=== PATIENT | female | born 1940 | race Caucasian/White ===

== ENCOUNTER 2022-03-17 17:59 | Emergency (ER) | payer MEDICAID ==
[~2022-03-17] VITALS: Ht 162.6 cm; Wt 64.0 kg
[~2022-03-17 17:59] MED LIST: AMLO5TAB88 PO
[2022-03-17] MEDS ORDERED: ACETAMINOPHEN 325MG TABLET PO NR (20:30)
[2022-03-17 21:56] VITALS: BP 168/89
== END 2022-03-18 00:20 | disposition home or self-care (01) ==
LOC: AI 17:59 → ER 03-18 00:20
DX: R55 Syncope and collapse (principal); I10 Essential (primary) hypertension; F03.90 Unspecified dementia, unspecified severity, without behavioral disturbance, psychotic disturbance, mood disturbance, and anxiety; W18.2XXA Fall in (into) shower or empty bathtub, initial encounter; Y93.F1 Activity, caregiving, bathing; Y92.9 Unspecified place or not applicable; Z88.0 Allergy status to penicillin
CPT/HCPCS: 73030; 99284

== ENCOUNTER 2022-04-18 07:18 | Inpatient (IN) | payer MEDICAID ==
[~2022-04-18] VITALS: Ht 165.1 cm; Wt 49.9 kg
[2022-04-18] MEDS ORDERED: IPRATROPIUM BROMIDE (0.02%) 0.5MG/2.5ML NEB HHN STA (07:32)
[2022-04-18] MEDS ORDERED: ALBUTEROL (0.083%) 2.5MG/3ML NEB HHN STA (07:32)
[2022-04-18] MEDS ORDERED: DEXAMETHASONE 4MG/ML 1ML VIAL IV ONE (07:45)
[2022-04-18] MEDS ORDERED: SODIUM CHLORIDE 0.9% 500 ML IV ONE (08:15)
[2022-04-18 08:27] LABS: BASOPHILS % 0.2 % (0.0-2.0); HEMATOCRIT. 36.5 % (36.0-48.0); HEMOGLOBIN. 12.1 g/dL (12.0-16.0); LYMPHOCYTES % 13.6 % (20.0-50.0); MEAN CORPUSCULAR VOLUME 96.2 fL (81.0-99.0); MEAN PLATELET VOLUME 10.1 fl (7.4-10.4); MONOCYTES % 7.9 % (2.0-8.0); NEUTROPHILS % 78.3 % (40.0-76.0); PLATELET 139 x1000/uL (130-400); RED BLOOD CELL COUNT 3.79 mill/uL (4.2-5.4); RED CELL DISTRIBUTION WIDTH 14.9 % (11.6-14.6)
[2022-04-18] MEDS ORDERED: SODIUM CHLORIDE 0.9% 1,000 ML IV ONE (08:30)
[2022-04-18 08:35] LABS: CHLORIDE 108 mEq/L (98-107)
[2022-04-18 08:45] LABS: ETHANOL BLOOD < 10 mg/dL
[2022-04-18 12:13] LABS: BG CARBOXYHEMOGLOBIN 0.5 % (0.5-1.5); BG FRACTION INSPIRED OXYGEN 32; BG HCO3 ACT 21.5 mmol/L (22.0-26.0); BG METHEMOGLOBIN 0.2 % (0.0-1.5); BG OXYHEMOGLOBIN 95.3 % (94.0-97.0); BG PCO2 36.7 mmHg (35.0-45.0); BG PH 7.386 (7.350-7.450); BG PO2 85.9 mmHg (75.0-100.0); BG SAMPLE SITE RIGHT RADIAL; BG TOTAL HEMOGLOBIN 12.8 g/dL (12.0-18.0); BG VENT MODE NASAL CANNULA
[2022-04-18] MEDS ORDERED: DIPHENHYDRAMINE 50MG/ML VIAL IV PRN (15:00)
[2022-04-18] MEDS ORDERED: ACETAMINOPHEN 325MG TABLET PO PRN (15:00)
[2022-04-18] MEDS ORDERED: IPRATROPIUM/ALBUTEROL 0.5-3(2.5)MG/3ML NEB HHN PRN (15:00)
[2022-04-18] MEDS ORDERED: ONDANSETRON HCL 4MG/2ML INJ IV PRN (15:00)
[2022-04-18] MEDS ORDERED: AZITHROMYCIN 500 MG in DEXT 5% WATER 250 ML IV SCH (15:00)
[2022-04-18 16:33] VITALS: BP 129/73
[2022-04-18 17:55] VITALS: BP_SYST 129; BP_SYST 166; BP_DIAS 73; BP_DIAS 78
[2022-04-18] MEDS: SODIUM CHLORIDE 0.9% 1,000 ML IV SCH (18:15)
[2022-04-18] MEDS: AZITHROMYCIN 500 MG in DEXT 5% WATER 250 ML IV SCH (19:36)
[2022-04-18 20:52] VITALS: BP 107/67
[2022-04-18] MEDS ORDERED: IPRATROPIUM BROMIDE (0.02%) 0.5MG/2.5ML NEB HHN PRN (22:00)
[2022-04-18] MEDS ORDERED: ALBUTEROL (0.083%) 2.5MG/3ML NEB HHN PRN (22:00)
[2022-04-19] VITALS: BP 112/66
[2022-04-19 04:00] VITALS: BP 110/77
[2022-04-19 07:00] LABS: BASOPHILS % 0.3 % (0.0-2.0); EOSINOPHILS % 0.1 % (0.0-5.0); HEMATOCRIT. 35.7 % (36.0-48.0); HEMOGLOBIN. 11.9 g/dL (12.0-16.0); LYMPHOCYTES % 13.7 % (20.0-50.0); MEAN CORPUSCULAR HEMOGLOBIN 31.9 pg (28.0-32.0); MEAN CORPUSCULAR VOLUME 95.9 fL (81.0-99.0); MONOCYTES % 5.9 % (2.0-8.0); PLATELET 114 x1000/uL (130-400); RED BLOOD CELL COUNT 3.73 mill/uL (4.2-5.4); RED CELL DISTRIBUTION WIDTH 14.4 % (11.6-14.6)
[2022-04-19 07:17] LABS: CHLORIDE 113 mEq/L (98-107)
[2022-04-19 08:00] VITALS: BP 158/80
[2022-04-19 12:00] VITALS: BP 128/74
[2022-04-19 16:00] VITALS: BP 158/98
[2022-04-19] MEDS: AZITHROMYCIN 500 MG in DEXT 5% WATER 250 ML IV SCH (16:51)
[2022-04-19] MEDS: SODIUM CHLORIDE 0.9% 1,000 ML IV SCH (16:51)
[2022-04-19 18:01] LABS: CLARITY URINE CLOUDY (CLEAR); COLOR URINE YELLOW (YELLOW); KETONES URINE NEGATIVE (NEGATIVE); LEUKOCYTE ESTERASE URINE 2+ (NEGATIVE); NITRITE URINE NEGATIVE (NEGATIVE); OCCULT BLOOD URINE 1+ (NEGATIVE); PROTEIN URINE 1+ (NEGATIVE); SPECIFIC GRAVITY URINE 1.023 (1.005-1.030)
[2022-04-19 20:00] VITALS: BP 182/106
[2022-04-19] MEDS: CLONIDINE 0.1MG TABLET PO PRN (20:52)
[2022-04-20] VITALS: BP 169/88
[2022-04-20] MEDS: ACETAMINOPHEN 650MG/20.3ML UDC PO PRN ×2 (00:26→22:55)
[2022-04-20 04:00] VITALS: BP 165/93
[2022-04-20 06:03] LABS: BASOPHILS % 0.2 % (0.0-2.0); EOSINOPHILS % 0.1 % (0.0-5.0); HEMATOCRIT. 35.1 % (36.0-48.0); HEMOGLOBIN. 11.8 g/dL (12.0-16.0); LYMPHOCYTES % 12.8 % (20.0-50.0); MEAN PLATELET VOLUME 10.2 fl (7.4-10.4); MONOCYTES % 5.7 % (2.0-8.0); NEUTROPHILS % 81.2 % (40.0-76.0); PLATELET 127 x1000/uL (130-400); RED BLOOD CELL COUNT 3.69 mill/uL (4.2-5.4); RED CELL DISTRIBUTION WIDTH 14.7 % (11.6-14.6)
[2022-04-20 08:10] LABS: CHLORIDE 109 mEq/L (98-107)
[2022-04-20] MEDS ORDERED: POTASSIUM CHLORIDE 20MEQ/PACKET PO NR (14:15)
[2022-04-20] MEDS: AZTREONAM 2 GM in DEXT 5% WATER 100 ML IV SCH (17:40)
[2022-04-20] MEDS: SODIUM CHLORIDE 0.9% 1,000 ML IV SCH (17:41)
[2022-04-20] MEDS: AZITHROMYCIN 500 MG TABLET PO SCH (17:53)
[2022-04-20] MEDS ORDERED: IPRATROPIUM/ALBUTEROL 0.5-3(2.5)MG/3ML NEB HHN SCH (18:00)
[2022-04-20] MEDS: VANCOMYCIN 1G PREMIX 200 ML IV SCH (18:27)
[2022-04-20 20:00] VITALS: BP 207/100
[2022-04-20] MEDS: ALBUTEROL (0.083%) 2.5MG/3ML NEB HHN SCH (21:06)
[2022-04-20] MEDS: BUDESONIDE 0.5MG/2ML NEB HHN SCH (21:06)
[2022-04-20] MEDS: IPRATROPIUM BROMIDE (0.02%) 0.5MG/2.5ML NEB HHN SCH (21:06)
[2022-04-20] MEDS: HYDRALAZINE 20MG/ML VIAL IV PRN (21:33)
[2022-04-20 22:44] VITALS: BP 150/86
[2022-04-21] MEDS: ALBUTEROL (0.083%) 2.5MG/3ML NEB HHN SCH ×3 (01:37→21:26)
[2022-04-21] MEDS: IPRATROPIUM BROMIDE (0.02%) 0.5MG/2.5ML NEB HHN SCH ×3 (01:37→21:26)
[2022-04-21] MEDS: AZTREONAM 2 GM in DEXT 5% WATER 100 ML IV SCH ×2 (03:54→16:50)
[2022-04-21 04:00] VITALS: BP 114/82
[2022-04-21 06:33] LABS: BASOPHILS % 0.2 % (0.0-2.0); EOSINOPHILS % 0.4 % (0.0-5.0); HEMATOCRIT. 33.7 % (36.0-48.0); HEMOGLOBIN. 11.4 g/dL (12.0-16.0); LYMPHOCYTES % 14.8 % (20.0-50.0); MEAN CORPUSCULAR HEMOGLOBIN 32.3 pg (28.0-32.0); MEAN CORPUSCULAR VOLUME 95.1 fL (81.0-99.0); MEAN PLATELET VOLUME 10.1 fl (7.4-10.4); MONOCYTES % 5.4 % (2.0-8.0); NEUTROPHILS % 79.2 % (40.0-76.0); PLATELET 133 x1000/uL (130-400); RED BLOOD CELL COUNT 3.54 mill/uL (4.2-5.4); RED CELL DISTRIBUTION WIDTH 14.5 % (11.6-14.6)
[2022-04-21 08:00] VITALS: BP 146/80
[2022-04-21 09:26] LABS: CHLORIDE 110 mEq/L (98-107)
[2022-04-21] MEDS: SODIUM CHLORIDE 0.9% 1,000 ML IV SCH (09:42)
[2022-04-21] MEDS: BUDESONIDE 0.5MG/2ML NEB HHN SCH ×2 (10:20→21:25)
[2022-04-21 12:00] VITALS: BP 101/77
[2022-04-21] MEDS: ACETAMINOPHEN 650MG/20.3ML UDC PO PRN (12:36)
[2022-04-21] MEDS: GUAIFENESIN 600MG ER TABLET PO SCH ×2 (12:58→21:36)
[2022-04-21 15:51] VITALS: BP 162/80
[2022-04-21] MEDS: CLONIDINE 0.1MG TABLET PO PRN (15:53)
[2022-04-21] MEDS: AZITHROMYCIN 500 MG TABLET PO SCH (18:21)
[2022-04-21] MEDS: VANCOMYCIN 1G PREMIX 200 ML IV SCH (18:21)
[2022-04-21 20:00] VITALS: BP 180/72
[2022-04-22] VITALS: BP 147/84
[2022-04-22] MEDS: IPRATROPIUM BROMIDE (0.02%) 0.5MG/2.5ML NEB HHN SCH ×4 (01:15→21:25)
[2022-04-22] MEDS: ALBUTEROL (0.083%) 2.5MG/3ML NEB HHN SCH ×4 (01:16→21:25)
[2022-04-22] MEDS: SODIUM CHLORIDE 0.9% 1,000 ML IV SCH ×2 (02:51→18:08)
[2022-04-22 04:00] VITALS: BP 127/72
[2022-04-22] MEDS: AZTREONAM 2 GM in DEXT 5% WATER 100 ML IV SCH ×2 (05:02→16:39)
[2022-04-22 06:18] LABS: BASOPHILS % 0.2 % (0.0-2.0); EOSINOPHILS % 0.1 % (0.0-5.0); HEMOGLOBIN. 11.3 g/dL (12.0-16.0); LYMPHOCYTES % 11.7 % (20.0-50.0); MEAN CORPUSCULAR HEMOGLOBIN 31.9 pg (28.0-32.0); MEAN CORPUSCULAR VOLUME 95.7 fL (81.0-99.0); MEAN PLATELET VOLUME 8.8 fl (7.4-10.4); MONOCYTES % 4.8 % (2.0-8.0); NEUTROPHILS % 83.2 % (40.0-76.0); PLATELET 137 x1000/uL (130-400); RED BLOOD CELL COUNT 3.55 mill/uL (4.2-5.4); RED CELL DISTRIBUTION WIDTH 14.6 % (11.6-14.6)
[2022-04-22 08:00] VITALS: BP 146/71
[2022-04-22 08:21] LABS: CHLORIDE 102 mEq/L (98-107)
[2022-04-22] MEDS: GUAIFENESIN 600MG ER TABLET PO SCH ×3 (09:03→21:02)
[2022-04-22 12:00] VITALS: BP 112/54
[2022-04-22 16:00] VITALS: BP 120/68
[2022-04-22] MEDS: VANCOMYCIN 1G PREMIX 200 ML IV SCH (16:39)
[2022-04-22] MEDS: AZITHROMYCIN 500 MG TABLET PO SCH (18:08)
[2022-04-22 20:00] VITALS: BP 166/99
[2022-04-22] MEDS: ACETAMINOPHEN 650MG/20.3ML UDC PO PRN (20:54)
[2022-04-22] MEDS: CLONIDINE 0.1MG TABLET PO PRN (20:55)
[2022-04-22] MEDS: BUDESONIDE 0.5MG/2ML NEB HHN SCH (21:25)
[2022-04-22] MEDS ORDERED: ACETYLCYSTEINE 200MG/ML 20% VIAL 10ML INH SCH (22:00)
[2022-04-23] VITALS (8 sets, daily range): BP systolic 86–154; BP diastolic 42–85
[2022-04-23] MEDS ORDERED: SODIUM CHLORIDE 0.9% 250 ML IV ONE (00:15)
[2022-04-23] MEDS: ALBUTEROL (0.083%) 2.5MG/3ML NEB HHN SCH ×4 (03:05→21:37)
[2022-04-23] MEDS: IPRATROPIUM BROMIDE (0.02%) 0.5MG/2.5ML NEB HHN SCH ×4 (03:05→21:36)
[2022-04-23] MEDS: AZTREONAM 2 GM in DEXT 5% WATER 100 ML IV SCH ×2 (05:57→17:07)
[2022-04-23] MEDS: BUDESONIDE 0.5MG/2ML NEB HHN SCH ×2 (10:15→21:41)
[2022-04-23] MEDS: SODIUM CHLORIDE 0.9% 1,000 ML IV SCH (10:54)
[2022-04-23] MEDS: VANCOMYCIN 750MG PREMIX 150 ML IV SCH (14:27)
[2022-04-23] MEDS: GUAIFENESIN 600MG ER TABLET PO SCH (20:53)
[2022-04-23] MEDS ORDERED: POTASSIUM CHLORIDE 20MEQ/PACKET PO NR (23:00)
[2022-04-24] VITALS (7 sets, daily range): BP systolic 115–173; BP diastolic 67–98
[2022-04-24] MEDS: VANCOMYCIN 750MG PREMIX 150 ML IV SCH ×2 (01:02→14:31)
[2022-04-24] MEDS: IPRATROPIUM BROMIDE (0.02%) 0.5MG/2.5ML NEB HHN SCH ×4 (01:25→21:20)
[2022-04-24] MEDS: ALBUTEROL (0.083%) 2.5MG/3ML NEB HHN SCH ×4 (01:26→21:20)
[2022-04-24] MEDS: AZTREONAM 2 GM in DEXT 5% WATER 100 ML IV SCH ×2 (05:09→17:47)
[2022-04-24] MEDS: GUAIFENESIN 600MG ER TABLET PO SCH ×2 (08:27→20:23)
[2022-04-24] MEDS: SODIUM CHLORIDE 0.9% 1,000 ML IV SCH ×2 (14:34→20:38)
[2022-04-24] MEDS: CLONIDINE 0.1MG TABLET PO PRN (20:23)
[2022-04-25] VITALS (8 sets, daily range): BP systolic 114–186; BP diastolic 54–112
[2022-04-25] MEDS: IPRATROPIUM BROMIDE (0.02%) 0.5MG/2.5ML NEB HHN SCH ×3 (01:08→15:02)
[2022-04-25] MEDS: ALBUTEROL (0.083%) 2.5MG/3ML NEB HHN SCH ×3 (01:08→15:03)
[2022-04-25] MEDS: VANCOMYCIN 750MG PREMIX 150 ML IV SCH ×2 (02:04→16:20)
[2022-04-25 05:54] LABS: BASOPHILS % 0.5 % (0.0-2.0); EOSINOPHILS % 3.5 % (0.0-5.0); HEMATOCRIT. 29.9 % (36.0-48.0); HEMOGLOBIN. 10.1 g/dL (12.0-16.0); LYMPHOCYTES % 29.7 % (20.0-50.0); MEAN CORPUSCULAR HEMOGLOBIN 32.1 pg (28.0-32.0); MEAN CORPUSCULAR VOLUME 94.7 fL (81.0-99.0); MEAN PLATELET VOLUME 8.2 fl (7.4-10.4); MONOCYTES % 7.4 % (2.0-8.0); NEUTROPHILS % 58.9 % (40.0-76.0); PLATELET 294 x1000/uL (130-400); RED BLOOD CELL COUNT 3.16 mill/uL (4.2-5.4); RED CELL DISTRIBUTION WIDTH 14.7 % (11.6-14.6)
[2022-04-25] MEDS: AZTREONAM 2 GM in DEXT 5% WATER 100 ML IV SCH ×2 (06:04→18:08)
[2022-04-25 06:23] LABS: CHLORIDE 107 mEq/L (98-107)
[2022-04-25] MEDS: GUAIFENESIN 600MG ER TABLET PO SCH (10:07)
[2022-04-25] MEDS: HYDRALAZINE 20MG/ML VIAL IV PRN (10:08)
[2022-04-25] MEDS ORDERED: HYDRALAZINE 10 MG in SODIUM CHLORIDE 0.9% 49.5 ML IV PRN (11:30)
[2022-04-25] MEDS: SODIUM CHLORIDE 0.9% 1,000 ML IV SCH (13:40)
== END 2022-04-25 19:15 | disposition home or self-care (01) | DRG 720 ==
LOC: ER 07:33 → 7WST 13:06 → 6EST 04-25 11:20
PROVIDERS: ADMIT Internal Medicine; ATTEND Internal Medicine
DX: A41.9 Sepsis, unspecified organism (principal); J96.00 Acute respiratory failure, unspecified whether with hypoxia or hypercapnia; G93.40 Encephalopathy, unspecified; E44.0 Moderate protein-calorie malnutrition; I50.30 Unspecified diastolic (congestive) heart failure; I11.0 Hypertensive heart disease with heart failure; J18.9 Pneumonia, unspecified organism; F03.90 Unspecified dementia, unspecified severity, without behavioral disturbance, psychotic disturbance, mood disturbance, and anxiety; Z66 Do not resuscitate; Z51.5 Encounter for palliative care; Z88.0 Allergy status to penicillin; Z20.822 Contact with and (suspected) exposure to COVID-19; N39.0 Urinary tract infection, site not specified; Z68.1 Body mass index [BMI] 19.9 or less, adult; E86.0 Dehydration
CPT/HCPCS: 36415; 36600; 71045; 71250; 74176; 80048; 80053; 80076; 80202; 80320; 81003; 82375; 82805; 83605; 83880; 84134; 84145; 84484; 85025; 87426; 87804; 92610; 93005; 93970; 94640; 94667; 97161; 99285; A6261; C1893; C9803; J0360; J0456; J1100; J3370; J3490; J7040; J7060; J7608; J7626; G0480